=== PATIENT | male | born 1985 | race Caucasian/White ===

== ENCOUNTER → 2016-11-26 | Outpatient (CLI) | payer OTHER ==
--- NOTE | 2016-11-26 22:31 | CONS ---
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 Anatomically, the patient has typical features, including bilateral tonsillar enlargement, Mallampati class IV and significant neck circumference of 19 and a quarter of an inch. The patient carries a BMI of 49.2. He admits to have soft snoring. No witnessed apneas. Goes to bed around 10:00 p.m., wakes up at 7:30 a.m. in the morning. Never falls asleep while driving. Never been involved in a motor vehicle accident. He has an Saint Helen score of 1. No history of any significant cardiovascular disease. He has questionable history of TIA in the past and currently he is on a combination of baby aspirin and Plavix. No nighttime wakening for choking or gasping. No nocturia. No grinding of the teeth. No sleepwalking. No dry mouth. No anxiety or panic attacks. No palpitations. No heartburn. No restlessness in the lower extremities. PAST MEDICAL HISTORY: 1. Questionable TIA, remote history of. 2. Obesity. PAST SURGICAL HISTORY: None. ALLERGIES: None. Medications include: 1. Plavix. 2. Baby aspirin. SOCIAL HISTORY: Nonsmoker. No history of alcohol, no history of IV drugs. FAMILY HISTORY: Negative for sleep apnea. REVIEW OF SYSTEMS: Twelve-point review of systems was done and the positive findings were all mentioned above in the history of present illness. BP is 131/65, pulse 79, respirations 16, temperature 98.2, Saturation is 98% on room air. Temperature 98.0, weight 362. Height is 72 inches. Neck size 19-1/4. BMI is 49.2. Saint Helen score is one. GENERAL APPEARANCE: Obese, calm, comfortable. HEENT: Short neck, crowding posterior pharynx. There is no goiter, neck masses. LUNGS: Diminished breath sounds bilaterally; otherwise clear. Heart sounds are regular rate and rhythm muscle masses. No murmurs. ABDOMEN: Soft, nontender. No organomegaly. EXTREMITIES: No edema. No cyanosis or clubbing. IMPRESSION: 1. Obstructive sleep apnea clinically suspected. 2. Obesity with a body mass index of 49.2. 3. Mallampati class IV. 4. Bilateral tonsillar enlargement. 5. History of transient ischemic attack. PLAN: 1. Proceed with a screening polysomnogram and decide on treatment accordingly. 2. Encourage weight loss. 3. Implement good sleep hygiene measures. 4. We will continue to follow.
== END | disposition home or self-care (01) ==
LOC: SLEEP 16:18
PROVIDERS: ATTEND Internal Medicine Critical Care Medicine
DX: E66.9 Obesity, unspecified (principal); J35.1 Hypertrophy of tonsils; Z68.42 Body mass index [BMI] 45.0-49.9, adult; Z86.73 Personal history of transient ischemic attack (TIA), and cerebral infarction without residual deficits; Z79.02 Long term (current) use of antithrombotics/antiplatelets; Z79.82 Long term (current) use of aspirin
CPT/HCPCS: 99211

== ENCOUNTER → 2018-01-07 | Outpatient (CLI) | payer SELFPAY ==
--- NOTE | 2018-01-07 12:05 | US ---
EXAMINATION TYPE: US carotid duplex BILAT DATE OF EXAM: 01/07/2018 COMPARISON: NONE CLINICAL HISTORY: Z86.73 Personal history of transient ischemic. History of TIA EXAM MEASUREMENTS: RIGHT: Peak Systolic Velocity (PSV) cm/sec ----- Right CCA: 123.7 ----- Right ICA: 135.0 ----- Right ECA: 164.7 ICA/CCA ratio: 1.1 RIGHT: End Diastole cm/sec ----- Right CCA: 20.4 ----- Right ICA: 52.7 ----- Right ECA: 32.7 LEFT: Peak Systolic Velocity (PSV) cm/sec ----- Left CCA: 164.7 ----- Left ICA: 123.3 ----- Left ECA: 164.7 ICA/CCA ratio: 0.7 LEFT: End Diastole cm/sec ----- Left CCA: 44.5 ----- Left ICA: 44.5 ----- Left ECA: 26.8 VERTEBRALS (direction of flow): Right Vertebral: Antegrade Left Vertebral: Antegrade Rhythm: Normal Difficult study due to patient heavy breathing. Focal plaques are not identified. Bilateral intimal thickening, elevated velocities: right distal ICA, right proximal ECA, left proxima l and distal CCA and proximal ECA, no significant stenosis. IMPRESSION: 1. Bilateral mild elevation of the internal carotid artery velocities compatible with mild flow-limit ing stenosis. Criteria for Assigning % of Stenosis / Diameter reduction (Estimation based on the indirect measurements of the internal carotid artery velocities (ICA PSV). 1. Normal (no stenosis)=ICA PSV < 125 cm/s: ratio < 2.0: ICA EDV<40 cm/s. 2. Less than 50% stenosis=ICA PSV < 125 cm/s: ratio < 2.0: ICA EDV<40 cm/s. 3. 50 to 69% stenosis=ICA PSV of 125 to 230 cm/s: ration 2.0 ? 4.0: ICA EDV 40-100 cm/s. 4. Greater than 70% stenosis to near occlusion= ICA PSV > 230 cm/s: ratio > 4.0: ICA EDV > 100 cm/s. 5. Near occlusion= ICA PSV velocities may be low or undetectable: variable ratio and ICA EDV. 6. Total occlusion=unable to detect flow.
== END | disposition home or self-care (01) ==
LOC: RADUSWWP 10:22
PROVIDERS: ATTEND Family Medicine
DX: Z09 Encounter for follow-up examination after completed treatment for conditions other than malignant neoplasm (principal); I77.89 Other specified disorders of arteries and arterioles; Z86.73 Personal history of transient ischemic attack (TIA), and cerebral infarction without residual deficits
CPT/HCPCS: 93880

== ENCOUNTER → 2019-01-25 | Outpatient (CLI) | payer BC ==
--- NOTE | 2019-01-25 09:06 | CT ---
EXAMINATION TYPE: CT angio neck DATE OF EXAM: 01/25/2019 COMPARISON: None HISTORY: Vertebro-basilar artery syndrome CT DLP: 637.9 mGycm CONTRAST: CTA cervical carotids is performed and with IV Contrast, patient injected with 50 mL of Isovue 370. Contrast CTA of the cervical carotids was performed 3-D reconstruction imaging obtained at a separate workstation. Right carotid system: No significant plaque is seen of the right common carotid artery. There is No significant plaque also noted at the carotid bulb. No hemodynamically significant stenosis apprecia roly. . ECA is patent. Right vertebral artery appears unremarkable. Left carotid system: No significant plaque is seen of the left common carotid artery. There is No s ignificant plaque also noted at the carotid bulb. No hemodynamically significant stenosis appreciate d. ECA is patent. Left vertebral artery appears unremarkable. IMPRESSION: No hemodynamically significant stenosis appreciated.
== END | disposition home or self-care (01) ==
LOC: RADCTMAIN 07:33
PROVIDERS: ATTEND Family Medicine
DX: G45.0 Vertebro-basilar artery syndrome (principal); I63.012 Cerebral infarction due to thrombosis of left vertebral artery
CPT/HCPCS: 70498

== ENCOUNTER → 2019-11-26 | Outpatient (CLI) | payer MEDICAID ==
--- NOTE | 2019-11-26 16:49 | CT ---
EXAMINATION TYPE: CT angio neck DATE OF EXAM: 11/26/2019 COMPARISON: 01/25/2019 HISTORY: 34-year-old male TIA, Vertebro-basilar artery syndrome. TECHNIQUE: Contiguous axial scanning of the neck performed with IV Contrast, patient injected with 65 mL of Isovue 370. Coronal/sagittal MIP reconstructions performed. 3-D reconstructions generated on a dedicated independent workstation. CT DLP: 559.4 mGycm Automated exposure control for dose reduction was used. FINDINGS: Aorta normal caliber with conventional vessel branching anatomy. Proximal portion of the left vertebral arteries is secured by dense beam hardening artifact. Otherwis e, both vertebral arteries appear patent throughout the course. The right common and internal carotid artery is patent. Focal tortuosity of the proximal to mid right ICA. Left common and internal carotid arteries appear patent. Mild tortuosity of the upper left ICA. V4 segment left vertebral artery becomes slightly hypoplastic after the PICA takeoff. Both vertebral and basilar arteries appear patent. Prominent soft tissues in the region of the lingual and palatine tonsils. IMPRESSION: 1. NO COMMON OR INTERNAL CAROTID ARTERY STENOSIS ON EITHER SIDE. 2. THE V4 SEGMENT LEFT VERTEBRAL ARTERY BECOMES SLIGHTLY HYPOPLASTIC AFTER THE PICA TAKEOFF LIKELY DU E TO ANATOMIC VARIATION. OTHERWISE, PATENT AND NORMAL CALIBER VERTEBRAL AND BASILAR ARTERIES. 3. PROMINENT SOFT TISSUE IN THE OROPHARYNX AND HYPOPHARYNX EFFACING THE AIRWAY. DIRECT VISUALIZATION CAN ASSESS FOR SIGNIFICANT TONSILLAR HYPERTROPHY.
== END | disposition home or self-care (01) ==
LOC: RADCTMAIN 15:10
PROVIDERS: ATTEND Family Medicine
DX: G54.9 Nerve root and plexus disorder, unspecified (principal); G54.0 Brachial plexus disorders
CPT/HCPCS: 70498; Q9967

== ENCOUNTER → 2020-11-08 | Outpatient (CLI) | payer MEDICAID ==
--- NOTE | 2020-11-08 16:41 | US ---
EXAMINATION TYPE: US carotid duplex BILAT DATE OF EXAM: 11/08/2020 COMPARISON: US & CT angio head neck 01/07/2018 CT angios 11/26/2019 CLINICAL HISTORY: G45.0 Vertebro-basilar artery syndrome. Pt states history of TIA's EXAM MEASUREMENTS: RIGHT: Peak Systolic Velocity (PSV) cm/sec ----- Right CCA: 125.3 ----- Right ICA: 115.7 ----- Right ECA: 172.7 ICA/CCA ratio: 0.9 RIGHT: End Diastole cm/sec ----- Right CCA: 30.0 ----- Right ICA: 30.0 ----- Right ECA: 30.7 LEFT: Peak Systolic Velocity (PSV) cm/sec ----- Left CCA: 106.9 ----- Left ICA: 107.3 ----- Left ECA: 146.3 ICA/CCA ratio: 1.0 LEFT: End Diastole cm/sec ----- Left CCA: 29.2 ----- Left ICA: 46.8 ----- Left ECA: 26.8 VERTEBRALS (direction of flow): Right Vertebral: Antegrade Left Vertebral: Antegrade Rhythm: Normal Slightly elevated velocities bilateral ECAs, however no significant stenosis visualized bilaterally IMPRESSION: 1. No evidence of stenosis of the common carotid or internal carotid arteries bilaterally. There is l ess than 50% stenosis of the bilateral internal carotid arteries. No significant atherosclerotic plaq ue is seen. 2. Slightly elevated velocities of the bilateral external carotid arteries. No significant stenosis i s seen. Criteria for Assigning % of Stenosis / Diameter reduction (Estimation based on the indirect measurements of the internal carotid artery velocities (ICA PSV). 1. Normal (no stenosis)=ICA PSV < 125 cm/s: ratio < 2.0: ICA EDV<40 cm/s. 2. Less than 50% stenosis=ICA PSV < 125 cm/s: ratio < 2.0: ICA EDV<40 cm/s. 3. 50 to 69% stenosis=ICA PSV of 125 to 230 cm/s: ration 2.0 ? 4.0: ICA EDV 40-100 cm/s. 4. Greater than 70% stenosis to near occlusion= ICA PSV > 230 cm/s: ratio > 4.0: ICA EDV > 100 cm/s. 5. Near occlusion= ICA PSV velocities may be low or undetectable: variable ratio and ICA EDV. 6. Total occlusion=unable to detect flow.
== END | disposition home or self-care (01) ==
LOC: RADUSWWP 12:55
PROVIDERS: ATTEND Family Medicine
DX: I65.23 Occlusion and stenosis of bilateral carotid arteries (principal); Z86.73 Personal history of transient ischemic attack (TIA), and cerebral infarction without residual deficits
CPT/HCPCS: 93880

== ENCOUNTER → 2021-02-22 | Outpatient (CLI) | payer MEDICAID ==
--- NOTE | 2021-02-22 09:27 | XR ---
EXAMINATION TYPE: XR KUB DATE OF EXAM: 02/22/2021 COMPARISON: NONE HISTORY: Renal stent TECHNIQUE: One view abdominal series FINDINGS: The osseous structures are intact. The bowel gas pattern is nonspecific. Right-sided ureteral stent noted. No definite calcifications along the course of the stent. IMPRESSION: 1. Nonspecific abdomen. Right-sided ureteral stent noted.
== END | disposition home or self-care (01) ==
LOC: RADXRMAIN 09:03
PROVIDERS: ATTEND Urology
DX: Z48.816 Encounter for surgical aftercare following surgery on the genitourinary system (principal); Z96.0 Presence of urogenital implants
CPT/HCPCS: 74018

== ENCOUNTER 2021-02-27 10:54 | Day surgery (SDC) | payer MEDICAID ==
[2021-02-23 13:31] VITALS: BMI 49.1
--- NOTE | 2021-02-25 14:08 | P.GSHP ---
History of Present Illness H&P Date: 02/25/21 35 yo male while up in [facility] passed a 6 mm ureteral stone into his right ureter. His urine was infected leading a uti with sepsis, pyonephrosis right. He was transferred to [place] where he underwent an emergency stent placement. He came to me upon returning home to [place]. We revied the case and he is now set up for right ureteroscopy with laser lithotripsy, stent and stone removal. Kub shows the stone has migrated back into the kidney right - Constitutional Constitutional: Denies chills, Denies fever - EENT Eyes: denies blurred vision, denies pain Ears, nose, mouth and throat: Denies headache, Denies sore throat - Cardiovascular Cardiovascular: Denies chest pain, Denies shortness of breath - Respiratory Respiratory: Denies cough, Denies 7 - Gastrointestinal Gastrointestinal: Denies abdominal pain, Denies diarrhea, Denies nausea, Denies vomiting - Genitourinary (Female) Genitourinary: Denies dysuria, Denies hematuria - Genitourinary (Male) Genitourinary: Denies dysuria, Denies hematuria - Musculoskeletal Musculoskeletal: Denies myalgias - Integumentary Integumentary: Denies pruritus, Denies rash - Neurological Neurological: Denies numbness, Denies weakness - Psychiatric Psychiatric: Denies anxiety, Denies depression - Endocrine Endocrine: Denies fatigue, Denies weight change Past Medical History Past Medical History: CVA/TIA, Hyperlipidemia, Hypertension, Sleep Apnea/CPAP/BIPAP Additional Past Medical History / Comment(s): C PAP MACHINE History of Any Multi-Drug Resistant Organisms: None Reported Additional Past Surgical History / Comment(s): CYSTOSCOPY- WITH STENT FOR KIDNEY STONE Past Anesthesia/Blood Transfusion Reactions: No Reported Reaction Smoking Status: Current every day smoker - Past Family History Mother Family Medical History: No Reported History Medications and Allergies Home Medications Medication Instructions Recorded Confirmed Type ALPRAZolam [Xanax] 1 mg PO BID PRN 02/23/21 02/23/21 History Aspirin 81 mg PO DAILY 02/23/21 02/23/21 History Atorvastatin [Lipitor] 10 mg PO HS 02/23/21 02/23/21 History Ciprofloxacin HCl [Cipro] 500 mg PO Q12H 02/23/21 02/23/21 History Clopidogrel Bisulfate [Plavix] 75 mg PO DAILY 02/23/21 02/23/21 History Lisdexamfetamine Dimesylate 40 mg PO QAM 02/23/21 02/23/21 History [Vyvanse] Multivitamins, Thera [Multivitamin 1 tab PO DAILY 02/23/21 02/23/21 History (formulary)] Propranolol HCl [Inderal Xl] 80 mg PO DAILY 02/23/21 02/23/21 History Tamsulosin HCl [Flomax] 0.4 mg PO DAILY 02/23/21 02/23/21 History lisinopriL [Zestril] 40 mg PO DAILY 02/23/21 02/23/21 History Allergies Allergy/AdvReac Type Severity Reaction Status Date / Time folic acid Allergy Unknown Verified 02/23/21 12:28 Surgical - Exam - General well developed, well nourished, no distress - Eyes PERRL - ENT no hearing loss - Neck no masses - Respiratory normal expansion, normal respiratory effort - Cardiovascular Rhythm: regular - Abdomen Abdomen: soft, non tender - Genitourinary normal penis with no external lesions, testicles present - Neurologic normal coordination, normal sensation - Musculoskeletal normal gait - Psychiatric oriented to time, oriented to person, speech is normal, memory intact Results - Imaging Abdominal x-ray: report reviewed, image reviewed Assessment and Plan Assessment: Impression: right ureteral stone with pyonephrosis treated with antibiotics and a right ureteral catheter. Plan: right ureteroscopy with laser lithotripsy, stone and stent removal
[~2021-02-27 10:54] MED LIST: AMPICILLIN 1,000 MG in SODIUM CHLORIDE 0.9% 50 ML IVPB PRN; GENTAMICIN 170 MG in SODIUM CHLORIDE 0.9% 100 ML IVPB PRN
[2021-02-27] MEDS ORDERED: HYDROmorphone 0.5 MG/0.5 ML SYRINGE IVP PRN (11:29)
[2021-02-27] MEDS ORDERED: fentaNYL (PF) 50 MCG/ML 2 ML AMP IVP PRN (11:29)
[2021-02-27] MEDS ORDERED: MIDAZOLAM 2 MG/2 ML VIAL IV PRN (11:29)
[2021-02-27] MEDS ORDERED: LIDOCAINE 1% (10MG/ML) FOR IV START INTRADERMA PRN (11:29)
[2021-02-27] MEDS ORDERED: LACTATED RINGERS 1,000 ML IV SCH (11:29)
[2021-02-27] MEDS ORDERED: DEXAMETHASONE SOD PHOSPHATE 4 MG/ML 1 ML VIAL IV ONE (11:29)
[2021-02-27] MEDS ORDERED: ONDANSETRON 4 MG/2 ML VIAL IVP ONE (11:29)
--- NOTE | 2021-02-27 12:03 | XR ---
EXAMINATION TYPE: XR KUB DATE OF EXAM: 02/27/2021 COMPARISON: NONE HISTORY: Presurgical stent removal TECHNIQUE: One view abdominal series FINDINGS: The osseous structures are intact. The bowel gas pattern is nonspecific. There is a double-J right u reteral stent. Hypertrophic arthropathy of the hips. Tiny calcification left hemipelvis.. IMPRESSION: 1. Nonspecific abdomen.
[2021-02-27 12:26] LABS: Basophils # (A) 0.1 k/uL (0-0.2); Basophils % (A) 1 %; Eosinophils # (A) 0.3 k/uL (0-0.7); Eosinophils % (A) 2 %; HCT 43.2 % (39.0-53.0); HGB 14.7 gm/dL (13.0-17.5); Lymphocytes # (A) 3.3 k/uL (1.0-4.8); Lymphocytes % (A) 29 %; MCH 29.4 pg (25.0-35.0); MCV 86.6 fL (80.0-100.0); Mean Platelet Volume 6.2; Monocytes # (A) 0.5 k/uL (0-1.0); Monocytes % (A) 4 %; Neutrophils # (A) 7.1 k/uL (1.3-7.7); Neutrophils % (A) 62 %; Platelet Count 565 k/uL (150-450); RBC 4.99 m/uL (4.30-5.90); RDW 12.8 % (11.5-15.5); WBC 11.3 k/uL (3.8-10.6)
[2021-02-27 12:28] LABS: Appearance,Urine Clear (Clear); Bacteria,Urine Rare /hpf; Bilirubin,Urine Negative (Negative); Blood,Urine Moderate (Negative); Color,Urine Yellow; Glucose,Urine (UA) Negative (Negative); Ketones,Urine Negative (Negative); Leukocyte Esterase,Urine Moderate (Negative); Mucus,Urine Rare /hpf; Nitrite,Urine Negative (Negative); Protein,Urine 1+ (Negative); RBC,Urine 78 /hpf (0-5); Specific Gravity,Urine 1.023 (1.001-1.035); Squamous Epithelial Cell,Urine <1 /hpf (0-4); Urobilinogen,Urine <2.0 mg/dL (<2.0); WBC,Urine 20 /hpf (0-5)
[2021-02-27 12:36] LABS: African American GFR (CKD) >90 (>60 ml/min/1.73 sqM); Anion Gap 10 mmol/L; Blood Urea Nitrogen 15 mg/dL (9-20); Calcium 9.8 mg/dL (8.4-10.2); Carbon Dioxide 24 mmol/L (22-30); Chloride 103 mmol/L (98-107); Glucose 98 mg/dL (74-99); Non-African American GFR(CKD) >90 (>60 ml/min/1.73 sqM); Potassium 4.7 mmol/L (3.5-5.1); Sodium 137 mmol/L (137-145)
[2021-02-27] MEDS ORDERED: fentaNYL (PF) 50 MCG/ML 2 ML AMP ONE (14:25)
[2021-02-27] MEDS ORDERED: SUCCINYLCHOLINE CHLORIDE VIAL 200 MG/10 ML VIAL IV ONE (14:25)
[2021-02-27] MEDS ORDERED: PROPOFOL 10 MG/ML 20 ML VIAL IV ONE (14:25)
[2021-02-27] MEDS ORDERED: MIDAZOLAM 2 MG/2 ML VIAL ONE (14:25)
[2021-02-27] MEDS ORDERED: LIDOCAINE 1% INJ 10MG/ML (20 ML MDV) ONE (14:25)
[2021-02-27] MEDS ORDERED: IOPAMIDOL-370 50ML BTL MISCELLANE ONE (15:00)
--- NOTE | 2021-02-27 15:15 | P.OP ---
Preoperative Diagnosis: Right ureteral calculus, urinary tract infection with sepsis status post stent placement Postoperative Diagnosis: Same Procedure(s) Performed: Cystoscopy, right ureteroscopy, right intraoperative nephrostogram Anesthesia: EDWARDA Surgeon: Marin Phipps Estimated Blood Loss (ml): 0 Pathology: none sent Condition: stable Disposition: PACU Indications for Procedure: The patient is 35. A couple weeks ago he was in [facility] and developed a fever flank pain. He had a CAT scan there are identified a 5 mm proximal ureteral stone. There is no urologist in [facility] thus he was transferred to [place] where Dr. Chong Cortes placed a double-J catheter. The films did not come with the patient but a hydronephrosis on retrograde was identified. A double-J catheter was placed a. The patient came back to [place]. He was seen in the office. A KUB identified a stent but no obvious stone. Whether the stone crumbled passer was does not easily seen due to the patient's large size is indeterminate. He comes for cystoscopy removal stent right ureteroscopy and laser lithotripsy of indicated Description of Procedure: Patient is brought to the operating suite. He is given a general endotracheal anesthesia. Placed lithotomy position with sterile prep and drape. Cystoscopy Foroblique lens and 21-Belarusian sheath identifies normal urethra. The prostate is not obstructing. The double-J catheter in the right orifice is identified. The rest the bladder mucosa is unremarkable. The stent is grasped and pulled the urethral meatus. Through the stent is passed an 035 wire up into the collecting system. I remove the stent and then over the wires passed the flexible ureteroscope up into the kidney. I do complete flexible intraoperative nephroscopy and do not see a stone. I pulled the ureteroscope back to the UPJ and do an intraoperative nephrostogram and see no obvious stone or filling defect. I make sure ago and every calyx a stone the nephrostogram and again no stone was seen. I do a pullout ureteroscopy and no stone was seen The bladder is drained and the patient awake and returned recovery room good condition Impression successful right ureteroscopy and stent removal. There is no stone seen. The patient we discharged home upon recovery.
[2021-02-27 15:27] VITALS: TEMP 97.5
--- NOTE | 2021-02-27 15:39 | FL ---
EXAMINATION TYPE: FL urography retrograde DATE OF EXAM: 02/27/2021 COMPARISON: NONE HISTORY: Fluoroscopy TECHNIQUE: Fluoroscopy. FINDINGS: Fluoroscopic guidance was provided during procedure of 7 seconds provided.. IMPRESSION: As Above.
[2021-02-27 15:48] VITALS: RESP 16
[2021-02-27 16:22] VITALS: BP 121/75; PULSE 72
== END 2021-02-27 16:28 | disposition home or self-care (01) ==
LOC: OR 10:54
PROVIDERS: ATTEND Urology
DX: Z46.6 Encounter for fitting and adjustment of urinary device (principal); N13.6 Pyonephrosis; E78.5 Hyperlipidemia, unspecified; I10 Essential (primary) hypertension; Z86.73 Personal history of transient ischemic attack (TIA), and cerebral infarction without residual deficits; F17.210 Nicotine dependence, cigarettes, uncomplicated; Z79.82 Long term (current) use of aspirin; Z79.899 Other long term (current) drug therapy; Z87.442 Personal history of urinary calculi; G47.33 Obstructive sleep apnea (adult) (pediatric); E66.9 Obesity, unspecified; Z79.02 Long term (current) use of antithrombotics/antiplatelets
CPT/HCPCS: 80048; 85025; 81001; 74420; 74018; 52310; C1769; J2250; J0330; J1100; J2405; J2001; J3010; J1580; J0290; J2704; Q9967

== ENCOUNTER → 2021-10-19 | Outpatient (CLI) | payer OTHER ==
--- NOTE | 2021-10-19 15:23 | US ---
EXAMINATION TYPE: US carotid duplex BILAT DATE OF EXAM: 10/19/2021 COMPARISON: US CLINICAL HISTORY: G45.0 VERTEBRO-BASILAR ARTERY SYNDROME. Pt states history of TIA EXAM MEASUREMENTS: RIGHT: Peak Systolic Velocity (PSV) cm/sec ----- Right CCA: 108.4 ----- Right ICA: 99.6 ----- Right ECA: 122.4 ICA/CCA ratio: 0.9 RIGHT: End Diastole cm/sec ----- Right CCA: 19.8 ----- Right ICA: 29.2 ----- Right ECA: 15.0 LEFT: Peak Systolic Velocity (PSV) cm/sec ----- Left CCA: 128.6 ----- Left ICA: 108.2 ----- Left ECA: 131.8 ICA/CCA ratio: 0.8 LEFT: End Diastole cm/sec ----- Left CCA: 26.8 ----- Left ICA: 39.6 ----- Left ECA: 13.9 VERTEBRALS (direction of flow): Right Vertebral: Antegrade Left Vertebral: Antegrade Rhythm: Normal No significant stenosis seen IMPRESSION: No evidence for hemodynamically significant stenosis. Criteria for Assigning % of Stenosis / Diameter reduction (Estimation based on the indirect measurements of the internal carotid artery velocities (ICA PSV). 1. Normal (no stenosis)=ICA PSV < 125 cm/s: ratio < 2.0: ICA EDV<40 cm/s. 2. Less than 50% stenosis=ICA PSV < 125 cm/s: ratio < 2.0: ICA EDV<40 cm/s. 3. 50 to 69% stenosis=ICA PSV of 125 to 230 cm/s: ration 2.0 ? 4.0: ICA EDV 40-100 cm/s. 4. Greater than 70% stenosis to near occlusion= ICA PSV > 230 cm/s: ratio > 4.0: ICA EDV > 100 cm/s. 5. Near occlusion= ICA PSV velocities may be low or undetectable: variable ratio and ICA EDV. 6. Total occlusion=unable to detect flow.
== END | disposition home or self-care (01) ==
LOC: RADUSWWP 14:50
PROVIDERS: ATTEND Family Medicine
DX: G45.0 Vertebro-basilar artery syndrome (principal); Z86.73 Personal history of transient ischemic attack (TIA), and cerebral infarction without residual deficits
CPT/HCPCS: 93880